=== PATIENT | female | born 1990 | race Caucasian/White ===

== ENCOUNTER 2022-12-26 19:00 | Inpatient (IN) | payer MEDICAID, SELFPAY ==
[2022-12-26] VITALS (9 sets, daily range): BP systolic 129–132; BP diastolic 85–88; PULSE 75–83; TEMP 36.8–37.2; O2SAT 91–100; BMI 24.8
--- NOTE | 2022-12-26 19:38 | PCM.HP.OB ---
HPI - General General Date of Admission: 12/26/22 HPI Narrative CASIE FAM, is a 32 F who presents Maternal Data Information Final THERESA: 12/26/22 Gestational age: 40 weeks PFSH PFSH Medical History Depression Herpes genitalia Allergy/AdvReac Type Severity Reaction Status Date / Time No Known Allergies Allergy Verified 12/26/22 19:27 Surgical History H/O breast surgery NST FHR Rate Baby A Baseline: 145 Variability:: Moderate Accelerations:: 15 x 15 Decelerations:: None Uterine Activity:: Quiet Vital Signs Vital Signs Vital Signs: 12/26/22 19:32 12/26/22 19:32 12/26/22 19:32 Temperature Temperature Source Pulse Rate 80 Blood Pressure 129/85 H BP Systolic 129 BP Diastolic 85 Pulse Ox 98 12/26/22 19:32 12/26/22 19:33 12/26/22 19:32 Temperature 99.0 F Temperature Source Temporal Pulse Rate Blood Pressure BP Systolic BP Diastolic Pulse Ox 98 Physical Exam Const alert, oriented x3 and no apparent distress Chest inspection of chest normal GI soft to palpation, non-tender and non-distended Inspection: gravid Narrative: cvx - 1/70/-2, Intracervical cooper placed no HSV lesions Labs Labs Labs: No Data to Display See [facility] H&P Assessment & Plan (1) 40 weeks gestation of : COMMENT: @ 40 weeks (2) High serum inhibin A: PLAN: Plan Admit to L&D Induction - intracervical cooper placed. Plan for cytotec. GBS negative EFW - less that 4500g, patient with adequare pelvis Pain - epidural as desired Routine care
[2022-12-26] MEDS: 0.9% Normal Saline Single 100 ML IV.SOLN. INTRA-UTER (19:48)
[2022-12-26] MEDS: Lactated Ringers 1,000 ML 50 ML IV (20:00)
[2022-12-26 20:15] LABS: Absolute Lymphocyte Count 2.44 X10^3/uL (0.83-4.51); Absolute Neutrophil Count 6.1 X10^3/uL (2.0-7.7); Basophil# 0.04 X10^3/uL; Basophil% 0.4 % (0-1); Eosinophil# 0.17 X10^3/uL; Eosinophils% 1.8 % (0-5); Hemoglobin 10.4 g/dL (12.0-15.0); Lymphocyte # 2.44 X10^3/ul (0.83-4.51); Lymphocyte % 25.3 % (19-41); Mean Corp Hgb Conc 32.5 g/dL (32-36); Mean Corpuscular Hgb 29.9 pg (27.0-32.0); Mean Platelet Vol. 11.6 fl (6.2-12.0); Monocyte% 9.3 % (0-10); NRBC Flagged by Analyzer 0 % (0-5); Neutrophil # 6.05 X10^3/uL (2.7-7.7); Neutrophil % 62.7 % (47-70); Platelet Count 199 K/mm3 (150-450); RBC Distribution Width CV 12.7 % (11.6-14.6); RBC Distribution Width SD 42.3 fl (35.1-43.9); Red Blood Count 3.48 M/mm3 (4.2-5.4); White Blood Count 9.7 K/mm3 (4.4-11.0)
[2022-12-26 20:55] LABS: Syphilis Antibodies Non-reactive
[2022-12-26] MEDS: Acetaminophen 500 MG Tablet PO (21:16)
[2022-12-26 22:29] LABS: Amphetamine Urine VISTA NEGATIVE (<1000 ng/mL); Barbiturate Urine VISTA NEGATIVE (< 200 ng/mL); Benzodiazepine Urine VISTA NEGATIVE (< 200 ng/mL); Cocaine Urine VISTA NEGATIVE (< 300 ng/mL); Ecstacy Urine VISTA NEGATIVE (< 500 ng/mL); Methadone Urine VISTA NEGATIVE (< 300 ng/mL); PCP Urine VISTA NEGATIVE (< 25 ng/mL); THC Urine VISTA NEGATIVE (< 50 ng/mL); Vista UDS pH Range 7
[2022-12-26] MEDS: miSOPROStol 25 MCG TABLET VAGINAL (22:35)
[2022-12-26] MEDS: LACTATED RINGERS 500 ML 999 ML IV (23:07)
[2022-12-27] VITALS (55 sets, daily range): BP systolic 106–157; BP diastolic 50–95; PULSE 72–103; RESP 16; TEMP 36.6–37.9; O2SAT 94–99
[2022-12-27] MEDS: LACTATED RINGERS 500 ML 999 ML IV ×2 (01:52→04:31)
[2022-12-27 02:37] LABS: ROM Internal Control Test YES-OK TO RESULT pt. (Internal QC); ROM Patient Test Negative (Negative)
[2022-12-27 02:38] LABS: Record Kit Lot#, ROM+ K1374
[2022-12-27] MEDS: Lactated Ringers 1,000 ML 200 ML IV ×2 (05:04→10:28)
[2022-12-27] MEDS: Oxytocin 15 Units/NS 250ml 15 UNITS/250 ML IV.SOLN 2 UNITS IV (05:15)
--- NOTE | 2022-12-27 08:00 | PN_ITS ---
Progress Note pt seen at bedside, VE: 3.5/90/-2 IUPC and IFM placed. EFW 8lb, pelvis feels adequate. SROM with meconium. Pt has intermittent variable and late dece lerations. At this time FHR is category 1 tracing[address] is in place.
[2022-12-27] MEDS: fentaNYL-bupivacaine (epidural) 100 ML BAG EPIDURAL (08:48)
[2022-12-27] MEDS: 0.9% Saline Lock 10 ML Syringe IV ×2 (09:38→17:16)
[2022-12-27] MEDS: Ondansetron 4 MG/2 ML Vial IV (09:38)
[2022-12-27] MEDS: Oxytocin 15 Units/NS 250ml 15 UNITS/250 ML IV.SOLN 83 UNITS IV (14:06)
--- NOTE | 2022-12-27 14:20 | EX.PCM.OBRPT ---
Vaginal Delivery Maternal Presentation Maternal Presentation: Medically Indicated Induction Type of Induction: Pitocin, Saleem Bulb and Cytotec Medical Reason for Induction: - (elevated Inhibin A) Operative Information Date of Procedure: 12/27/22 Pre-Operative Diagnosis: Elevated inhibin A, HSV genitalia, 40 weeks gestation, Meconium Post-Operative Diagnosis: same, live male Surgery / Procedure Performed: Spontaneous Vaginal Delivery Type of Anesthesia: Epidural Drain: Saleem to straight drain Estimated Blood Loss: 150 Time of Delivery: 14:00 Findings Description of Procedure: Patient progressed to fully dilated. Good maternal pushing efforts delivered the infant's head followed by the anterior shoulder with gentle downward traction. Infant's body was delivered without complication. The infant was placed on the mother's chest but was stunned at delivery. Infant was not vigorous. Immediate clamping and cutting of the cord was performed. Thick meconium was appreciated. The was immediately handed to the awaiting resuscitation team. Pitocin was started. Placenta was delivered intact without complication after cord gases were obtained. Second-degree perineal laceration appreciated. It was repaired using 2-0 Vicryl in the routine fashion. Presentation: Vertex Amniotic Membrane Rupture Type: Spontaneous Amniotic Fluid Description: Thick meconium Placental Delivery Description: Spontaneous Placenta Disposition: [facility] Specimen(s) Removed: placenta Cord Vessel Description: 3 Vessels Cord Entanglement: - (body cord x 1 ) Nuchal Cord Compression: With compression Cord Gases: ABG and VBG Infant A Gender: Male (1 minute): 2 (5 minute): 7 (8 at 10 min ) Delayed Cord Clamping: No Post Vaginal Delivery Medications Given After Delivery: IV Pitocin Episiotomy Description: None Laceration: Perineal Extension/lac and 2nd degree Complication Complications: None
[2022-12-27] MEDS: Acetaminophen 500 MG Tablet PO (14:47)
--- NOTE | 2022-12-27 18:56 | NURSING ---
Epidural catheter removed with blue tip intact. Pt tolerated well.
[2022-12-28 00:10] VITALS: BP 127/72; PULSE 90; RESP 16; TEMP 37; O2SAT 97
[2022-12-28] MEDS: Ibuprofen 600 MG Tablet PO ×2 (00:32→07:55)
[2022-12-28 03:50] VITALS: BP 124/66; PULSE 88; RESP 16; TEMP 36.4; O2SAT 95
[2022-12-28] MEDS: Benzocaine/Lanolin/Aloe Vera 1 SPRAY EACH TOPICAL (08:09)
[2022-12-28 09:00] VITALS: BP 122/75; PULSE 82; RESP 16; TEMP 36.4
--- NOTE | 2022-12-28 09:00 | PCM.PN.OB ---
Subjective Subjective Denies complaints Objective Data Objective Data Vital Signs: Vital Signs Temp Pulse Resp BP Pulse Ox O2 Del Method 97.6 F L 88 16 124/66 H 95 Room Air 12/28/22 03:50 12/28/22 03:50 12/28/22 03:50 12/28/22 03:50 12/28/22 03:50 12/28/22 03:50 Oxygen Delivery Method Room Air Weight: 149 lb 3.2 oz Body Mass Index (BMI) 24.8 Intake & Output: Intake and Output for Last 24 Hours 12/26/22 12/27/22 12/28/22 23:59 23:59 23:59 Intake Total 667.50 / 667.50 4326.67 / 4326.67 Output Total 1950 / 1950 Balance 667.50 / 667.50 2376.67 / 2376.67 Lab / Micro Data 12/26/22 20:00 Physical Exam Const alert, oriented x3 and no apparent distress HEENT normocephalic GI soft to palpation, non-tender and non-distended GI Narrative: fundus firm, mid & below umbilicus Extremity normal to inspection and no calf tenderness Assessment & Plan (1) Vaginal delivery: COMMENT: PPD#1 PLAN: Plan Possible d/c home later today
--- NOTE | 2022-12-28 09:31 | PCM.DC ---
Discharge Instructions Diet Discharge Diet: No restrictions Activity Discharge Activity: May Shower May resume sexual activity in: 6 weeks Weight Bearing Status: Weight bearing as tolerated Dressing / Incision Call your doctor if you observe: Fever of 101 or Higher, Coldness, Increased Pain, Change in Color, Inability to urinate, Inability to have a bowel movement, Using more than 1 pad per hour, Shortness of breath, Dizziness, Fainting spells, Chest pain, Increased palpitations (irregular heartbeat), Calf discomfort and Uncontrolled pain Follow Up Care Please Follow Up With: Karen Morillo MD When: Follow up in 2 and 6 weeks for visits. Test Results: Test results from this visit will be discussed in further detail at your follow-up appointment, if applicable. Discharge Plan Admission Admit Date/Time: 12/26/22 19:00 Primary Reason for Your Visit: Vaginal delivery Attending Provider: Di Yu Primary Care Provider: Abimbola Dhaliwal NP Discharge Orders/Prescriptions Prescriptions: New acetaminophen 500 mg Tablet 1,000 mg PO Q6H PRN PRN (Reason: Pain 1-10 Or Fever) Qty: 0 0RF ibuprofen 600 mg Tablet 600 mg PO Q6H PRN PRN (Reason: Pain Score 1-3) Qty: 0 0RF Continued acyclovir 400 mg tablet 400 mg PO TID Patient Comments: TAKE 1 TABLET BY MOUTH THREE TIMES DAILY [id number] 1 mg tablet 1 tab PO DAILY Discontinued aspirin 81 mg capsule 81 mg PO DAILY Referrals / Follow Up: Abimbola Dhaliwal NP, SECURITY GUARDS DISPATCHER-C [Primary Care Provider] - Disposition Disposition (needs filled in before D/C Order can be placed): Home, Self Care
[2022-12-28] MEDS: Acetaminophen 500 MG Tablet 1000 MG PO (10:23)
[2022-12-28 11:43] VITALS: BP 113/70; PULSE 70; RESP 16; TEMP 36.3; O2SAT 96
--- NOTE | 2022-12-28 15:59 | CASEMGMT ---
Social Work Assessment Labor and Delivery Unit Patient Address:[id number] [place] [address] Phone number: [phone] Date of Referral: 12/26/22 Time of Referral:? 2023 Referred By: Dr. Karen Morillo Date of Intervention: ?12/28/22? Time of Intervention:? 1500 Reason for Referral:? requesting information about living will, hx of anxiety, hx using resources Sw completed chart review, acknowledges social work consult entered. Sw presented to bedside, introduced self to mother of baby (MOB- Gerardo) and father of baby (FOB- Latisha). Sw explained reason for sw involvement, provided information and support and answered questions. 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 Parents have been together for two years. They are unmarried and co-habitate with one another. ?While meeting with MOB privately she denies domestic violence or intimate partner violence. Medical History: ?This is first and delivery for JIAN. JIAN received routine care with [facility] during . Baby boy, Michaela Pedro, was born on 12/27/22 via vaginal. Baby weighed 7lb 1oz and his apgars were 2, 7 and 8. Educational Status:?JIAN reports that she graduated from high school and has some college education but did not graduate with a degree. TOMAS states that he has his GED. Parents deny any learning concerns/ difficulties. 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 Supplies:??Parents report they have been able to obtain all necessary baby items including car seat, safe sleep space, clothes, diapers and wipes. Childcare/Caregiver(s):? When discharged parents will be the primary caregivers to baby. While FOJuan is at work MOB will be the primary caregiver. Parents state that if both parents are working or they need childcare assistance paternal grandma will be able to care for baby. Transportation:?? No transportation barriers at this time, both parents have reliable transportation. Programs/Agencies Involved: ??JAIN is connected to services provided through [employer]. She is receiving [employer] insurance. Sw asked JIAN if she is getting food stamps. MOB states that she was cut off when she and FOJuan moved in together. Sw encouraged MOB to reapply now that she is no longer employed and baby has been born, meaning she has a dependent. JIAN said they also moved recently and she needs to transfer services [facility] to [facility]. Sw encouraged MOB to also get connected to [facility] as they will help MOB obtain formula if she is supplementing. MOB open to this. ? Children Services/Legal Issues:??? Parents deny former Children services involvement. Behavioral Health Issues: ??Mental Health History: TOMAS reports that when he was 23 years old he went to a concert in [place] where there was a fatal shooting and 4 people, including the lead guitarist. TOMAS states that he has PTSD from this incident, but has been able to live his life and stil enjoy things that he likes to do. FOB states that he has not been in counseling and is not prescribed medication. MOB states that she has been diagnosed with anxiety. MOB states that she met with a counselor who helped assess her to determine that it is anxiety and not depression. MOB states that she was previously prescribed hydroxyzine PRN, but has not needed it for some time. MOB states that she prefers to do things the natural way. Sw discussed signs and symptoms of baby blues and depression. MOB completed [place] depression screen and scored a 2. Sw provided education and support. Sw encouraged MOB to get connected to her counselor should she start to feel as though she is experiencing baby blues or post depression. MOB expressed understanding. ??? Substance Use History:?MBO states that she used to smoke marijuana, but has not smoked for several years. MOB denies alcohol use. MOB does smoke cigarettes daily. Sw educated MOB on second hand smoke. Encouraged MOB and FOB to smoke outside of the home, to wash hands and change shirt prior to holding baby. MOB expressed understanding. ? Family History:?MOB states that she does not have a relationship with any of her biological family. MOB states that her parents did have substance use problems. MOB states that she moved out on her own when she was 16 because that is what was in her best interest at that time. When asked about family mental health history, MOB did say that her mom has been diagnosed with Bipolar. Sw educated MOB on psychosis due to her mother having bipolar. Drug Screens: MOB urine screen at delivery was negative. Family/Social Stressors:? MOB states that the biggest stressor at this time is getting baby to feed. MOB states that she is self expressing milk and putting it in a syringe to give to baby. MOB states that she does have a pump for at home. MOB is also supplementing with formula at this time. - Sw spoke to bedside RN about MOB feeding plan, and nurse confirmed this is something that will need more attention prior to MOB being ready for discharge from hospital Support Systems: MOB states that paternal grandma is their biggest support person. Depression/Shaken Baby/Safe Sleeping:?Sw provided education and literature on signs and symptoms of baby blues and post depression. Sw educated parents on shaken baby prevention and ABCs of safe sleep. Parents expressed understanding. ASSESSMENT:? Parents were engaged during psychosocial assessment. FOB left the room willingly when sw asked to meet with MOB privately. MOB states that FOB is a big support person for her. Parents were receptive to sw involvement and support. JIAN does not have a feeding plan that is sustainable for baby at this time. MOB would benefit from ongoing education and support provided my L&D/ staff. PLAN:? Sw will make referral to [facility] as discussed and agreed upon with parents. ?No other services requested or indicated. Amandeep Macario, SACK DEPARTMENT SUPERVISOR, [employer]
[2022-12-28 16:34] VITALS: BP 110/76; PULSE 70; RESP 16; TEMP 36.3; O2SAT 98
== END 2022-12-28 19:20 | disposition home or self-care (01) | DRG 560 ==
PROVIDERS: Obstetrics & Gynecology; Admitting Provider Obstetrics & Gynecology; PCP Nurse Practitioner Family; Visit Provider Obstetrics & Gynecology
DX: O76 Abnormality in fetal heart rate and rhythm complicating labor and delivery (principal); Z37.0 Single live birth; O26.893 Other specified pregnancy related conditions, third trimester; O42.92 Full-term premature rupture of membranes, unspecified as to length of time between rupture and onset of labor; O77.0 Labor and delivery complicated by meconium in amniotic fluid; O69.2XX0 Labor and delivery complicated by other cord entanglement, with compression, not applicable or unspecified; R79.89 Other specified abnormal findings of blood chemistry; O70.1 Second degree perineal laceration during delivery; Z3A.40 40 weeks gestation of pregnancy
CPT/HCPCS: 59025; 59050; 80307; 84112; 85025; 86780; 86850; 86900; 86901; 99221; J7120; A4216; G0378; J2405